=== PATIENT | male | born 1985 | race Caucasian/White ===

== ENCOUNTER 2017-07-23 09:36 | Emergency (ER) | payer MEDICAID, SELFPAY ==
[~2017-07-23] VITALS: Ht 188 cm; Wt 70.4 kg
[2017-07-23 09:40] VITALS: BP 128/84
[2017-07-23] MEDS ORDERED: CEFTRIAXONE 1,000 MG ONE (10:16)
[2017-07-23] MEDS ORDERED: LORazepam 1MG TABLET ONE (10:16)
[2017-07-23] MEDS ORDERED: KETOROLAC 30 MG/1 ML ONE (10:16)
[2017-07-23] MEDS ORDERED: LORazepam 1MG TABLET PO ONE (10:30)
[2017-07-23] MEDS ORDERED: KETOROLAC 30 MG/1 ML IM ONE (10:30)
[2017-07-23] MEDS ORDERED: CEFTRIAXONE 1,000 MG IM ONE (10:30)
== END 2017-07-23 11:19 | disposition home or self-care (01) ==
LOC: ED 10:18
DX: I89.1 Lymphangitis (principal); F17.210 Nicotine dependence, cigarettes, uncomplicated
CPT/HCPCS: 73630; 96372; 99284; J0696; J1885

== ENCOUNTER 2017-07-24 16:56 | Emergency (ER) | payer MEDICAID, SELFPAY ==
[~2017-07-24] VITALS: Ht 185.4 cm; Wt 70.0 kg
[2017-07-24 17:02] VITALS: BP 131/80
[2017-07-24] MEDS ORDERED: CLINDAMYCIN 150 MG/ML, 6ML IM ONE (17:30)
[2017-07-24] MEDS ORDERED: LIDOCAINE 1%, 10ML INFIL ONE (17:30)
[2017-07-24] MEDS ORDERED: CLINDAMYCIN 150 MG/ML, 6ML ONE (17:48)
== END 2017-07-24 18:08 | disposition home or self-care (01) ==
LOC: ED 18:02
DX: L03.031 Cellulitis of right toe (principal); Z87.891 Personal history of nicotine dependence
CPT/HCPCS: 10060; 87070; 87147; 87205; 96372